=== PATIENT | female | born 1995 | race Caucasian/White ===

== ENCOUNTER 2017-11-07 17:38 | Emergency (ER) | payer BC ==
[~2017-11-07] VITALS: Ht 160 cm; Wt 75.5 kg
[2017-11-07] MEDS ORDERED: FIORICET 325 MG1 TA1 PO (19:50)
[2017-11-07] MEDS ORDERED: PHENERGAN 25 TA25 MG PO (19:50)
[2017-11-07 19:55] VITALS: BP 134/85; PULSE 99; TEMP 99.6
== END 2017-11-07 19:55 | disposition home or self-care (01) ==
LOC: COL.ER 17:38
DX: G43.909 Migraine, unspecified, not intractable, without status migrainosus (principal); Z79.82 Long term (current) use of aspirin
CPT/HCPCS: J1200; J1885; J2550

== ENCOUNTER → 2020-09-17 | Outpatient (CLI) | payer BC ==
[~2020-09-17] MED LIST: FIORICET 325 MG1 TA1 PO; PHENERGAN 25 TA25 MG PO
== END ==
LOC: ZLAB.WCH 16:01
DX: Z02.89 Encounter for other administrative examinations (principal)

== ENCOUNTER 2020-11-26 16:18 | Inpatient (IN) | payer BC ==
[~2020-11-26] VITALS: Ht 162.6 cm; Wt 84.5 kg
[2020-11-29] VITALS (70 sets, daily range): BP systolic 83–145; BP diastolic 38–99; PULSE 68–141; TEMP 98.1–99.5
[2020-11-29] MEDS ORDERED: PRENATAL TABLET PO (06:28)
--- NOTE | 2020-11-29 07:10 | NUR ---
0617 PATIENT HERE FOR INDUCTION IN LABOR. ASSESSMENT COMPLETED. EFM ON FHT 130 BABY VERY ACTIVE. DENIES NEEDS. OCCASIONAL MILD CONTRACTIONS FELT BY PAIBARRETT. IV STARTED IN LEFT HAND AND IVF STARTED. 0700 PITOCIN STARTED PER PROTOCOL
[2020-11-29 07:19] LABS: BASO % 0.4 % (0.0-2.0); EOS # 0.1 (0.0-0.7); EOS % 1.1 % (0-4.0); GRAN # 6.4 (1.4-6.5); GRAN % 62.1 % (42.2-75.2); HEMATOCRIT 43.9 % (37.0-47.0); HEMOGLOBIN 14.3 g/dl (12.5-16.0); LYMPH # 3.2 (1.2-3.4); MEAN CELL VOLUME 81 fl (80.0-100.0); MEAN CORPUSCULAR HEMOGLOBIN 26 pg (27.0-31.0); MEAN CORPUSCULAR HGB CONC 33 g/dl (33.0-37.0); MEAN PLATELET VOLUME 9.8 fl (7.4-10.4); MONO # 0.5 (0.1-0.6); MONO % 4.8 % (1.7-9.3); PLATELET COUNT 277 K/mm3 (130-400); RED BLOOD COUNT 5.43 M/mm3 (4.10-5.30); REDCELL DISTRIBUTION WIDTH-CV 14.2 % (11.5-14.5)
[2020-11-29 09:22] LABS: ALBUMIN 3.6 gm/dL (3.5-5.0); BILIRUBIN,TOTAL 0.5 mg/dL (0.0-1.0); CALCIUM 8.9 mg/dL (8.4-10.2); CREATININE, serum 0.41 (0.52-1.25); POTASSIUM 3.9 mmol/L (3.4-5.0)
--- NOTE | 2020-11-29 11:04 | NUR ---
1030 D VICKIE SUSPENSION CORD TIER AT BEDSIDE FOR EPIDURAL PLACEMENT. SITS UP ON EDGE OF BED. SEE SUSPENSION CORD TIER NOTES FOR QUESTIONS. TOLERATES WELL
--- NOTE | 2020-11-29 11:50 | NUR ---
1130 SOLIMAN PLACED. SVE UNCHANGED. REPOSITIONED TO HIGH RIGHT. DR RAMSEY CALLED AND UPDATED NO NEW ORDERS
--- NOTE | 2020-11-29 15:36 | NUR ---
1530 SVE /- BLOODY SHOW. DR RAMSEY CALLED AND UPDATED. NO NEW ORDERS
[2020-11-29] MEDS ORDERED: MOTRIN 800800 MG/TAB PO (20:11)
[2020-11-29] MEDS ORDERED: PERCOCET 325 MG1 TA2 PO (20:11)
[2020-11-30 00:30] VITALS: BP 118/77; PULSE 78; TEMP 98.1
[2020-11-30 04:30] VITALS: BP 117/63; PULSE 88; TEMP 98.7
[2020-11-30 08:45] VITALS: BP 96/56; PULSE 73; TEMP 98.3
--- NOTE | 2020-11-30 10:20 | NUR ---
Initial visit attempt; Medical person with family, [facility] left card of congratulations and information regarding the availability of spiritual care at our hospital.
[2020-11-30 11:00] VITALS: BP 103/44; PULSE 74; TEMP 98
[2020-11-30 17:30] VITALS: BP 112/58; PULSE 85; TEMP 98.1
[2020-11-30 19:30] VITALS: BP 114/80; PULSE 78; TEMP 98.5
[2020-12-01 07:56] VITALS: BP 127/79; PULSE 90; TEMP 98
--- NOTE | 2020-12-01 14:17 | NUR ---
Dressing removed while pt lying in bed. Area cleaned with washrag and plain water. Incision site clean, dry, intact, some bruising noted below. Pt wishes to remain lying down, ice pack placed on incisional area for pt comfort. Pt denies further needs at this time.
[2020-12-01 17:04] VITALS: BP 117/62; PULSE 77; TEMP 98.2
[2020-12-01 20:30] VITALS: BP 113/52; PULSE 82; TEMP 98.3
[2020-12-02 07:30] VITALS: BP 125/74; PULSE 84; TEMP 97.9
== END 2020-12-02 11:40 | disposition home or self-care (01) | DRG 788 ==
LOC: LDR 11-29 06:07 → OB 11-29 06:07 → LDR 11-29 16:17 → OB 11-29 22:00
PROVIDERS: ADMIT Obstetrics & Gynecology
PROC: 10D00Z1 Extraction of Products of Conception, Low, Open Approach (ICD-10-PCS; principal; 2020-11-29)
DX: O13.4 Gestational [pregnancy-induced] hypertension without significant proteinuria, complicating childbirth (principal); O99.214 Obesity complicating childbirth; E66.9 Obesity, unspecified; O99.344 Other mental disorders complicating childbirth; F41.9 Anxiety disorder, unspecified; O62.1 Secondary uterine inertia; Z3A.38 38 weeks gestation of pregnancy; Z37.0 Single live birth
CPT/HCPCS: J0690; J1885; J2175; J2370; J2400; J2405; J2590; J2795; J7120

== ENCOUNTER → 2020-12-11 | Outpatient (CLI) | payer BC ==
[~2020-12-11] MED LIST changes: +MOTRIN 800800 MG/TAB PO; +PERCOCET 325 MG1 TA2 PO; +PRENATAL TABLET PO
--- NOTE | 2020-12-11 15:15 | NUR ---
Pt, Andrei Pena, presents for outpatient consult with 12 day old baby girl, Ildefonso Pena, for a evaulation because Ildefonso is still 6% below weight. She is accompanied by her mother. Ildefonso was born on [birth year] by c/section and weighed 7#5.5oz (3330 gms) The follow up weights from doctor appointments are reported: 12/04/20: 6#11oz 12/09/20: 6#13oz 12/11/20: 6#14oz At this appointment Ildefonso weighs 6#13.7oz (3110 gms). Pt reports Ildefonso has had 8 voids and 5+ yellow stools in the last 24 hours. Pt also reports pumping 2+oz even after a . Pt latches Ildefonso to the left breast, latch appears good, but Ildefonso releases the breast easily when tugged back to check latch. Once she is left to breastfeed, she seems to do well with swallows. Ildefonso nurses bilaterally. Ildefonso's weight gain after bilateral feeding is 2.4oz (68 gms). She appears content; length of feeding was 10 (L) and 8 (R) minutes. She has a good void as well. Pt states at a previous visit she had reported baby was feeding ~ every 45 minutes. She was advised to space feedings out to 3 hours, however it was not explained that 3 hour interval was from start to start vs. end to start so Ildefonso may have only had 6 feedings in the last 24 hours. Pt advised to increase feeding frequency to 2-3 hours from start to start timed. If baby does not nurse well she is to supplement ~1oz EBM after and pump. If she cannot get Ildefonso to nurse at all she is to supplement 2-3oz and pump. This likely will not be an issue based on the feeding observed here, more an option if latching struggles. POC: As noted above. F/U: Dr. Khan on December 14. Pt to report results to this LC. Questions invited and answered.
== END ==
LOC: LAC 14:26
DX: Z39.1 Encounter for care and examination of lactating mother (principal); Z71.89 Other specified counseling